=== PATIENT | female | born 1960 | race Caucasian/White ===

== ENCOUNTER 2019-11-11 09:32 | Day surgery (SDC) | payer OTHER ==
[2019-11-08 09:28] LABS: HEMOGLOBIN 13.6 g/dL (12.0-15.5); MEAN CORPUSCULAR HEMOGLOBIN 27.3 pg (27.0-33.4); MEAN CORPUSCULAR HGB CONC 33.2 g/dL (32.0-36.0); MEAN CORPUSCULAR VOLUME 82 fl (80-97); PLATELET COUNT 267 10^3/uL (150-450); RED BLOOD COUNT 4.99 10^6/uL (3.72-5.28); RED CELL DISTRIBUTION WIDTH 15.2 % (11.5-14.0); WHITE BLOOD COUNT 5.2 10^3/uL (4.0-10.5)
[~2019-11-11 09:32] MED LIST: ACETAMINOPHEN 325 MG TABLET PO PRN; LACTATED RINGERS 1000 ML IV PRN; LIDOCAINE 0.5% INJ-PF (5 MG/ML) 50 ML SDV SUBCUT PRN; RINGERS SOLUTION,LACTATED 1,000 ML IV PRN
[2019-11-11] MEDS ORDERED: PROPOFOL INJ 200 MG/20 ML VIAL IV ONE ×2 (10:31→13:30)
[2019-11-11] MEDS ORDERED: ONDANSETRON HCL INJ/PF 4 MG/2 ML SDV IV PRN (11:58)
--- NOTE | 2019-11-11 13:25 | Operative Report ---
Nonrecallable Operative Report DATE OF SURGERY: 11/11/19 PREOPERATIVE DIAGNOSIS: Screening colonoscopy POSTOPERATIVE DIAGNOSIS: Screening colonoscopy OPERATION: screening colonoscopy SURGEON: MICHELLE MUSTAFA ANESTHESIA: LMAC TISSUE REMOVED OR ALTERED: None COMPLICATIONS: None ESTIMATED BLOOD LOSS: 0 INTRAOPERATIVE FINDINGS: See note PROCEDURE: Patient was brought to the operating awake alert stable condition placed in the upper table in a left lateral decubitus position and given LMAC anesthesia. After appropriate timeout site verification the procedure commenced. The Olympus colonoscope was easily passed into the rectum and traversed the proximal rectum into the sigmoid colon descending colon splenic flexure transverse colon hepatic flexure and then down to the cecum the ileocecal valve was visualized. There was a bowel prep was fair. We then slowly withdrew the scope of the process of about 8 to 10 minutes we examined the mucosa of the ascending colon hepatic flexure transverse colon splenic flexure all appeared to be normal there is no evidence of any mucosal abnormalities no polyps no diverticulosis. As we slowly withdrew the scope down the descending colon reached the sigmoid colon and proximal rectum and then the scope was slowly withdrawn. Findings no evidence of polyps no evidence of diverticulosis or any other mucosal abnormalities. Recommendations repeat colonoscopy 10 years.
--- NOTE | 2019-11-11 13:26 | Discharge Summary ---
Discharge Summary (SDC) - Discharge Final Diagnosis: Screening colonoscopy Date of Surgery: 11/11/19 Discharge Date: 11/11/19 Condition: Good Referrals: CYNDEE LINDSEY [Primary Care Provider] - Discharge Diet: As Tolerated Discharge Activity: Activity As Tolerated Report the Following to Your Physician Immediately: Vomiting, Increase in Pain
[2019-11-11 15:23] VITALS: BP 110/76
== END 2019-11-11 14:40 | disposition home or self-care (01) ==
LOC: OROUT 09:32
PROVIDERS: ATTEND Surgery
DX: Z12.11 Encounter for screening for malignant neoplasm of colon (principal); Z88.2 Allergy status to sulfonamides; Z79.899 Other long term (current) drug therapy; Z79.51 Long term (current) use of inhaled steroids; Z87.891 Personal history of nicotine dependence; E03.9 Hypothyroidism, unspecified; J45.909 Unspecified asthma, uncomplicated; E04.2 Nontoxic multinodular goiter
CPT/HCPCS: 45378; 36415; 85027; 00812; J2704; 812